=== PATIENT | female | born 2000 | race Caucasian/White ===

== ENCOUNTER 2022-02-02 12:25 | Emergency (ER) | payer OTHER ==
[~2022-02-02] VITALS: Ht 165.1 cm; Wt 132.3 kg
[2022-02-02] MEDS ORDERED: CYMB1CAP5 PO (12:32)
[2022-02-02] MEDS ORDERED: KETOROLAC TROMETHAMINE 10 MG TAB PO ONE (13:20)
[2022-02-02 14:38] VITALS: BP 155/91
== END 2022-02-02 14:40 | disposition home or self-care (01) ==
LOC: M ED 12:25
DX: M94.0 Chondrocostal junction syndrome [Tietze] (principal); Z88.8 Allergy status to other drugs, medicaments and biological substances; Z79.899 Other long term (current) drug therapy

== ENCOUNTER → 2023-04-11 | Outpatient (REF) | payer OTHER ==
[~2023-04-11] MED LIST: CYMB1CAP5 PO
== END ==
LOC: M LAB REF 12:01
PROVIDERS: ATTEND Physician Assistant
DX: B34.9 Viral infection, unspecified (principal)

== ENCOUNTER 2023-06-11 19:26 | Emergency (ER) | payer OTHER ==
[~2023-06-11] VITALS: Ht 165.1 cm; Wt 143.3 kg
[2023-06-11 23:45] VITALS: BP 138/87; TEMP 97.7; O2SAT 100
[2023-06-12] MEDS ORDERED: IBUPROFEN 600MG TAB PO ONE (00:35)
== END 2023-06-12 00:45 | disposition home or self-care (01) ==
LOC: M ED 19:26
DX: S80.912A Unspecified superficial injury of left knee, initial encounter (principal); Z88.8 Allergy status to other drugs, medicaments and biological substances

== ENCOUNTER 2023-09-29 09:20 | Emergency (ER) | payer OTHER ==
[~2023-09-29] VITALS: Ht 162.6 cm; Wt 143.4 kg
[2023-09-29 10:07] LABS: BASO # 0.1 10^3/uL (0.0-0.2); BASO % 0.7 % (0.0-1.0); EOS # 0.1 10^3/uL (0.0-0.5); EOS % 1.9 % (0.0-3.0); HEMATOCRIT 37.1 % (36.0-47.0); HEMOGLOBIN 11.5 g/dl (12.0-15.5); LYMPH # 2.5 10^3/uL (1.5-5.0); LYMPH % 33.5 % (24.0-44.0); MEAN CORPUSCULAR HEMOGLOBIN 26.3 pg (27.0-33.0); MEAN CORPUSCULAR VOLUME 84.9 fl (80.0-96.0); MONO # 0.8 10^3/uL (0.0-0.8); NEUTROPHILS % 52.6 % (36.0-66.0); PLATELET COUNT, AUTOMATED 250 10^3/uL (150-450); RED BLOOD COUNT 4.37 10^6/uL (4.00-5.40); WHITE BLOOD COUNT 7.6 10^3/uL (4.0-10.0)
[2023-09-29 10:23] LABS: LIPASE 27 U/L (12-53)
[2023-09-29 10:25] LABS: ALBUMIN 3.4 G/DL (3.2-5.2); ALKALINE PHOSPHATASE 64 U/L (46-116); ALT/SGPT 22 U/L (7.0-40); AST/SGOT 18 U/L (<34); BILIRUBIN,DIRECT < 0.1 MG/DL (<0.4); BILIRUBIN,TOTAL 0.3 MG/DL (0.3-1.2); BLOOD UREA NITROGEN 12 MG/DL (9-23); CALCIUM LEVEL 9.2 MG/DL (8.5-10.1); CARBON DIOXIDE LEVEL 26 MMOL/L (20-31); CHLORIDE LEVEL 107 MMOL/L (98-107); CREATININE FOR GFR 0.59 MG/DL (0.55-1.30); GLOMERULAR FILTRATION RATE > 60.0 (>60); GLUCOSE, FASTING 97 MG/DL (60-100); POTASSIUM SERUM 3.3 MMOL/L (3.5-5.1); SODIUM LEVEL 139 MMOL/L (136-145); TOTAL PROTEIN 7.3 G/DL (5.7-8.2)
[2023-09-29 10:29] LABS: FREE T4 0.99 NG/DL (0.89-1.76)
[2023-09-29 11:19] LABS: HCG, SERUM QUALITATIVE NEGATIVE (NEGATIVE)
[2023-09-29 14:14] LABS: CK-MB VALUE MASS < 1.0 NG/ML (<3.6)
[2023-09-29 14:15] LABS: CPK CREATINE PHOSPHOKINASE 121 U/L (34-145); MB/CK RELATIVE INDEX 0.82 (< OR =4)
[2023-09-29 15:02] VITALS: BP 137/67; TEMP 98; O2SAT 100
== END 2023-09-29 15:00 | disposition home or self-care (01) ==
LOC: M ED 09:20
DX: R07.9 Chest pain, unspecified (principal); R00.2 Palpitations; R03.0 Elevated blood-pressure reading, without diagnosis of hypertension; F41.9 Anxiety disorder, unspecified; F32.A Depression, unspecified; Z88.8 Allergy status to other drugs, medicaments and biological substances

== ENCOUNTER 2023-10-10 20:27 | Emergency (ER) | payer OTHER ==
[~2023-10-10] VITALS: Ht 165.1 cm; Wt 142.4 kg
[2023-10-10 20:29] VITALS: TEMP 98
[2023-10-10 21:29] LABS: BASO # 0.1 10^3/uL (0.0-0.2); BASO % 0.6 % (0.0-1.0); EOS # 0.1 10^3/uL (0.0-0.5); EOS % 1.1 % (0.0-3.0); HEMATOCRIT 38.7 % (36.0-47.0); HEMOGLOBIN 12.1 g/dl (12.0-15.5); LYMPH # 2.1 10^3/uL (1.5-5.0); LYMPH % 24.3 % (24.0-44.0); MEAN CORPUSCULAR HEMOGLOBIN 26.5 pg (27.0-33.0); MEAN CORPUSCULAR HGB CONC 31.3 g/dl (32.0-36.5); MEAN CORPUSCULAR VOLUME 84.9 fl (80.0-96.0); MONO # 0.7 10^3/uL (0.0-0.8); MONO % 8.7 % (2.0-8.0); NEUTROPHILS # 5.6 10^3/uL (1.5-8.5); NEUTROPHILS % 65.2 % (36.0-66.0); PLATELET COUNT, AUTOMATED 263 10^3/uL (150-450); RED BLOOD COUNT 4.56 10^6/uL (4.00-5.40); WHITE BLOOD COUNT 8.5 10^3/uL (4.0-10.0)
[2023-10-10 21:53] LABS: CK-MB VALUE MASS < 1.0 NG/ML (<3.6)
[2023-10-10 21:54] LABS: BLOOD UREA NITROGEN 10 MG/DL (9-23); CALCIUM LEVEL 8.8 MG/DL (8.5-10.1); CARBON DIOXIDE LEVEL 29 MMOL/L (20-31); CHLORIDE LEVEL 106 MMOL/L (98-107); CPK CREATINE PHOSPHOKINASE 96 U/L (34-145); CREATININE FOR GFR 0.57 MG/DL (0.55-1.30); GLOMERULAR FILTRATION RATE > 60.0 (>60); GLUCOSE, FASTING 87 MG/DL (60-100); MB/CK RELATIVE INDEX 1.04 (< OR =4); POTASSIUM SERUM 3.9 MMOL/L (3.5-5.1); SODIUM LEVEL 140 MMOL/L (136-145)
[2023-10-10 21:58] LABS: HCG, SERUM QUALITATIVE NEGATIVE (NEGATIVE)
[2023-10-11 01:21] VITALS: BP 153/80; O2SAT 99
== END 2023-10-11 02:10 | disposition home or self-care (01) ==
LOC: M ED 20:27
DX: R07.9 Chest pain, unspecified (principal); Z88.6 Allergy status to analgesic agent; Z88.8 Allergy status to other drugs, medicaments and biological substances

== ENCOUNTER 2024-07-06 09:58 | Emergency (ER) | payer OTHER ==
[~2024-07-06] VITALS: Ht 152.4 cm; Wt 143.7 kg
[2024-07-06] MEDS ORDERED: SERT50TA29 (10:36)
[2024-07-06] MEDS: IBUPROFEN 600MG TAB PO ONE (14:07)
[2024-07-06 14:15] VITALS: BP 154/88; TEMP 97.8; O2SAT 100
== END 2024-07-06 14:17 | disposition home or self-care (01) ==
LOC: M ED 09:58
DX: S83.91XA Sprain of unspecified site of right knee, initial encounter (principal); W18.40XA Slipping, tripping and stumbling without falling, unspecified, initial encounter; Y92.008 Other place in unspecified non-institutional (private) residence as the place of occurrence of the external cause; Y93.89 Activity, other specified; Y99.9 Unspecified external cause status; Z88.8 Allergy status to other drugs, medicaments and biological substances; Z79.899 Other long term (current) drug therapy

== ENCOUNTER 2024-10-04 12:09 | Outpatient (RCR) | payer OTHER ==
[~2024-10-04 12:09] MED LIST changes: +SERT50TA29
== END 2024-10-05 ==
LOC: M PT 12:09
PROVIDERS: ATTEND Family Medicine
DX: M25.561 Pain in right knee (principal)

== ENCOUNTER 2024-11-01 10:55 | Outpatient (RCR) | payer OTHER | END 2024-11-05 | LOC: M PT 10:55 | PROVIDERS: ATTEND Family Medicine | DX: M25.561 Pain in right knee (principal) ==

== ENCOUNTER → 2024-11-01 | Outpatient (CLI) | payer OTHER | LOC: M SOG 07:53 | PROVIDERS: ATTEND Physician Assistant | DX: M25.561 Pain in right knee (principal); Z53.9 Procedure and treatment not carried out, unspecified reason ==

== ENCOUNTER → 2024-11-15 | Outpatient (CLI) | payer OTHER | LOC: M RAD 15:45 | PROVIDERS: ATTEND Physician Assistant | DX: M25.561 Pain in right knee (principal); R93.6 Abnormal findings on diagnostic imaging of limbs; M67.51 Plica syndrome, right knee; M17.11 Unilateral primary osteoarthritis, right knee ==

== ENCOUNTER 2024-11-24 10:30 | Outpatient (RCR) | payer OTHER | END 2024-12-03 | LOC: M PT 10:30 | PROVIDERS: ATTEND Family Medicine | DX: M25.561 Pain in right knee (principal) ==

== ENCOUNTER → 2025-01-20 | Outpatient (REF) | payer OTHER ==
[2025-01-20 14:48] LABS: BASO # 0.1 10^3/uL (0.0-0.2); BASO % 0.6 % (0.0-1.0); EOS # 0.2 10^3/uL (0.0-0.5); EOS % 2.5 % (0.0-3.0); HEMATOCRIT 38.7 % (36.0-47.0); HEMOGLOBIN 12.2 g/dl (12.0-15.5); LYMPH # 2.4 10^3/uL (1.5-5.0); LYMPH % 30.2 % (24.0-44.0); MEAN CORPUSCULAR HGB CONC 31.5 g/dl (32.0-36.5); MEAN CORPUSCULAR VOLUME 82.5 fl (80.0-96.0); MONO # 0.7 10^3/uL (0.0-0.8); MONO % 9.4 % (2.0-8.0); NEUTROPHILS # 4.5 10^3/uL (1.5-8.5); NEUTROPHILS % 57.2 % (36.0-66.0); PLATELET COUNT, AUTOMATED 249 10^3/uL (150-450); RED BLOOD COUNT 4.69 10^6/uL (4.00-5.40); WHITE BLOOD COUNT 7.9 10^3/uL (4.0-10.0)
[2025-01-20 15:15] LABS: ALBUMIN 3.3 G/DL (3.2-5.2); ALKALINE PHOSPHATASE 77 U/L (35-104); ALT/SGPT 24 U/L (7.0-40); AST/SGOT 14 U/L (<34); BILIRUBIN,TOTAL 0.5 MG/DL (0.3-1.2); BLOOD UREA NITROGEN 18 MG/DL (9-23); CALCIUM LEVEL 8.9 MG/DL (8.5-10.1); CARBON DIOXIDE LEVEL 26 MMOL/L (20-31); CHLORIDE LEVEL 104 MMOL/L (98-107); CHOLESTEROL LEVEL 166 MG/DL (<200); CREATININE FOR GFR 0.59 MG/DL (0.55-1.30); GLOMERULAR FILTRATION RATE > 90.0 (>60); GLUCOSE, FASTING 84 MG/DL (60-100); HDL CHOLESTEROL 75.2 MG/DL (>40); LDL CHOLESTEROL 76.4 MG/DL (<100); NON-HDL-C 90.8 MG/DL; POTASSIUM SERUM 4.2 MMOL/L (3.5-5.1); RHEUMATOID FACTOR QUANT < 3.5 IU/ML (<14); SODIUM LEVEL 139 MMOL/L (136-145); TOTAL PROTEIN 7.5 G/DL (5.7-8.2); TRIGLYCERIDES LEVEL 72 MG/DL (<150)
[2025-01-20 15:22] LABS: HEMOGLOBIN A1c 5.4 % (4.0-6.0)
== END ==
LOC: M SFHCPLAZ 10:49
PROVIDERS: ATTEND Family Medicine
DX: M79.10 Myalgia, unspecified site (principal); E66.01 Morbid (severe) obesity due to excess calories

== ENCOUNTER 2025-02-08 10:28 | Day surgery (SDC) | payer OTHER ==
[~2025-02-08] VITALS: Ht 165.1 cm; Wt 151.5 kg
[~2025-02-08 10:28] MED LIST changes: +SERT50TA29 PO
[2025-02-08] MEDS ORDERED: LR 1,000 ML IV SCH ×2 (11:20→17:40)
[2025-02-08] MEDS ORDERED: fentaNYL 100 MCG/2 ML INJECTION As Ordered ONE (12:50)
[2025-02-08] MEDS ORDERED: MIDAZOLAM INJ 2MG/2ML VIAL As Ordered ONE (12:50)
[2025-02-08] MEDS ORDERED: propofoL 200 MG/20 ML VIAL As Ordered ONE (12:50)
[2025-02-08] MEDS ORDERED: KETOROLAC 30 MG/ML 1ML VIAL As Ordered ONE (12:51)
[2025-02-08] MEDS ORDERED: ONDANSETRON 4MG 2ML VIAL As Ordered ONE (12:51)
[2025-02-08] MEDS ORDERED: LIDOCAINE 2% 100MG/5ML SDV (FOR ANES.) As Ordered ONE (12:51)
[2025-02-08] MEDS ORDERED: ROPIvacaine 0.5% 30ML VIAL PN ONE (13:00)
[2025-02-08] MEDS ORDERED: LIDOCAINE 1% SDV 5ML VIAL PN ONE (13:00)
[2025-02-08] MEDS ORDERED: SCOPOLAMINE 1MG TRANSDERMAL PATCH TOP ONE (13:00)
[2025-02-08] MEDS ORDERED: MIDAZOLAM INJ 2MG/2ML VIAL IV PRN (13:00)
[2025-02-08] MEDS ORDERED: dexAMETHasone 10MG/1ML VIAL PRES.FREE PN ONE (13:00)
[2025-02-08] MEDS ORDERED: fentaNYL 100 MCG/2 ML INJECTION IV PRN ×2 (13:00→17:40)
[2025-02-08] MEDS ORDERED: SUGAMMADEX SODIUM 500 MG/5 ML VIAL (BRIDION) As Ordered ONE (14:56)
[2025-02-08] MEDS ORDERED: ROCURONIUM BROMIDE 50MG/5ML VIAL As Ordered ONE (14:56)
[2025-02-08] MEDS: ceFAZolin SOD 3 GM in DEXTROSE 5% (D5W) MINI-BAG PLU 1... IV ONE (15:00)
[2025-02-08] MEDS: TRANEXAMIC ACID 100 MG/ML 10ML VIAL As Ordered ONE (15:05)
[2025-02-08] MEDS ORDERED: HYDROmorphone HCL 2MG/ML 1ML VIAL As Ordered ONE (15:24)
[2025-02-08] MEDS ORDERED: dexmedeTOMIDine (4MCG/ML)200MCG/50ML BTL (PRECEDEX) As Ordered ONE (15:43)
[2025-02-08] MEDS ORDERED: DESFLURANE 240 ML INHALANT As Ordered ONE (15:49)
[2025-02-08] MEDS: VANCOMYCIN 1000MG/20ML VIAL As Ordered ONE (16:00)
[2025-02-08] MEDS: ceFAZolin SODIUM 2 GM VIAL As Ordered ONE (17:11)
[2025-02-08] MEDS: EPINEPHrine 1MG/ML INJ 30ML MD-VIAL As Ordered ONE (17:25)
[2025-02-08] MEDS: HYDROMORPHONE HCL 0.5 MG/ 0.5 ML SYRINGE IV PRN (17:59)
[2025-02-08] MEDS ORDERED: DILA2TAB6 PO (18:06)
[2025-02-08] MEDS ORDERED: SUZE50TA PO (18:06)
[2025-02-08] MEDS ORDERED: ELIQ2.5T PO (18:06)
[2025-02-08] MEDS: oxyCODONE 5MG TAB PO PRN (18:33)
[2025-02-08 18:50] VITALS: BP 140/76; TEMP 96.8; O2SAT 96
[2025-02-08] MEDS: ONDANSETRON 4MG 2ML VIAL IV PRN (19:05)
== END 2025-02-08 19:49 | disposition home or self-care (01) ==
LOC: M SDC 10:28
PROVIDERS: ATTEND Neuromusculoskeletal Medicine, Sports Medicine
DX: S83.511A Sprain of anterior cruciate ligament of right knee, initial encounter (principal); X58.XXXA Exposure to other specified factors, initial encounter; Y92.89 Other specified places as the place of occurrence of the external cause; Y93.9 Activity, unspecified; K21.9 Gastro-esophageal reflux disease without esophagitis; F43.10 Post-traumatic stress disorder, unspecified; F41.9 Anxiety disorder, unspecified; F32.A Depression, unspecified; Z88.8 Allergy status to other drugs, medicaments and biological substances; Z79.899 Other long term (current) drug therapy
CPT/HCPCS: 29888; 81025; C1713; J0171; J0690; J1100; J1171; J1885; J2250; J2405; J3010; J3370

== ENCOUNTER 2025-04-28 09:02 | Outpatient (RCR) | payer OTHER ==
[~2025-04-28 09:02] MED LIST changes: +DILA2TAB6 PO; +ELIQ2.5T PO; +SUZE50TA PO; +TRAM50TA2 PO
== END 2025-05-05 ==
LOC: M PT 09:02
PROVIDERS: ATTEND Neuromusculoskeletal Medicine, Sports Medicine
DX: Z98.890 Other specified postprocedural states (principal)

== ENCOUNTER → 2025-05-16 | Outpatient (CLI) | payer OTHER ==
[2025-05-16 14:24] LABS: FREE T4 1.02 NG/DL (0.89-1.76)
== END ==
LOC: M PLALAB 11:55
PROVIDERS: ATTEND Physician Assistant Medical
DX: G56.01 Carpal tunnel syndrome, right upper limb (principal)